=== PATIENT | male | born 1955 | race Caucasian/White ===

== ENCOUNTER 2020-02-22 09:45 | Outpatient (RCR) | payer MEDICARE, SELFPAY | END 2020-02-29 23:59 | LOC: DC 09:45 | PROVIDERS: PCP Internal Medicine; Visit Provider Family Medicine | DX: Z71.3 Dietary counseling and surveillance (principal); E10.65 Type 1 diabetes mellitus with hyperglycemia | CPT/HCPCS: G0108 ==

== ENCOUNTER 2020-03-12 10:10 | Outpatient (RCR) | payer MEDICARE, SELFPAY | END 2020-03-12 23:59 | disposition home or self-care (01) | LOC: DC 10:10 | PROVIDERS: PCP Internal Medicine; Visit Provider Family Medicine | DX: Z71.3 Dietary counseling and surveillance (principal); E10.65 Type 1 diabetes mellitus with hyperglycemia | CPT/HCPCS: 97802 ==